=== PATIENT | male | born 1960 | race Caucasian/White ===

== ENCOUNTER 2017-07-31 10:45 | Inpatient (IN) | payer OTHER ==
[2017-07-31 11:09] LABS: CHLORIDE,CL 105 mEq/L (98-106); SODIUM,NA 140 mEq/L (136-145)
[2017-07-31] MEDS ORDERED: Acetaminophen/HYDROcodone 325-5 MG Tab PO PRN (12:14)
[2017-07-31] MEDS ORDERED: Ondansetron 4 MG/2 ML SDV IV PRN (12:14)
[2017-07-31] MEDS ORDERED: Ketorolac 30 MG/ML SDV IVPUSH PRN (12:14)
[2017-07-31] MEDS: Lactated Ringers 1,000 ML IV SCH (16:13)
[2017-07-31] MEDS: NIFEdipine 10 MG Cap PO SCH (16:14)
[2017-07-31] MEDS: Acetaminophen 325 MG Tab PO PRN ×2 (16:22→21:21)
[2017-07-31] MEDS: Enoxaparin 40 MG/0.4 ML Syringe SUBCUT SCH (16:25)
[2017-07-31] MEDS: Ampicillin/Sulbactam Na 3 GM in Sodium Chloride 0.9% 100 ML IV SCH ×4 (16:27→23:56)
[2017-07-31] MEDS: Tamsulosin 0.4 MG Cap.ER PO SCH ×2 (16:59→19:34)
[2017-08-01] MEDS: Lactated Ringers 1,000 ML IV SCH ×3 (00:35→18:20)
[2017-08-01] MEDS: Ampicillin/Sulbactam Na 3 GM in Sodium Chloride 0.9% 100 ML IV SCH ×3 (06:16→18:18)
[2017-08-01] MEDS ORDERED: PYRIDOXINE PO SCH (08:00)
[2017-08-01] MEDS ORDERED: [UNRECOGNIZED DRUG - OTHER] PO SCH (08:00)
[2017-08-01] MEDS ORDERED: TERBINAFINE HCL 250 MG PO SCH (08:00)
[2017-08-01] MEDS ORDERED: CYANOCOBALAMIN PO SCH (08:00)
[2017-08-01] MEDS: Acetaminophen 325 MG Tab PO PRN ×3 (08:09→18:29)
[2017-08-01] MEDS: NIFEdipine 10 MG Cap PO SCH (08:09)
[2017-08-01] MEDS: Enoxaparin 40 MG/0.4 ML Syringe SUBCUT SCH (08:10)
--- NOTE | 2017-08-01 10:51 | PCM.PN ---
- General Info Date of Service: 08/01/17 Admission Dx/Problem (Free Text): Pyelonephritis Nephrolithiasis Functional Status: Reports: Pain Controlled, Tolerating Diet. Denies: Ambulating - Review of Systems General: Reports: Fever, Fatigue. Denies: Weakness HEENT: Reports: No Symptoms Pulmonary: Denies: Shortness of Breath, Cough Cardiovascular: Denies: Chest Pain, Edema Gastrointestinal: Reports: Decreased Appetite. Denies: Abdominal Pain, Nausea, Vomiting Genitourinary: Reports: Flank Pain. Denies: Hematuria Musculoskeletal: Reports: No Symptoms Skin: Reports: No Symptoms Neurological: Reports: No Symptoms Psychiatric: Reports: No Symptoms - Patient Data Vitals - Most Recent: Last Vital Signs Temp 99.6 F 08/01/17 07:50 Pulse 78 08/01/17 07:50 Resp 18 08/01/17 07:50 BP 117/69 08/01/17 08:09 Pulse Ox 94 L 08/01/17 07:50 Weight - Most Recent: 325 lb 9.6 oz I&O - Last 24 Hours: Intake & Output 07/31/17 08/01/17 08/01/17 22:59 06:59 14:59 Intake Total 480 1430 2945 Output Total 150 350 Balance 330 1080 2945 Lab Results Last 24 Hours: Laboratory Results - last 24 hr 07/31/17 07/31/17 08/01/17 Range/Units 10:52 10:52 06:45 WBC 18.9 H 8.4 (5.0-10.0) 10^3/uL RBC 4.91 4.38 L (4.50-6.00) 10^6/uL Hgb 14.2 12.6 L (14.0-18.0) g/dL Hct 43.1 38.8 L (40.0-54.0) % MCV 87.8 88.6 (82.0-94.0) fL MCH 28.9 28.8 (27.0-32.0) pg MCHC 32.9 L 32.5 L (33.0-38.0) g/dL RDW Coeff of Tien 14.4 14.3 (11.0-15.0) % Plt Count 204 159 (150-400) 10^3/uL Neut % (Auto) 81.7 (35-85) % Lymph % (Auto) 7.4 L (10-55) % [place] % (Auto) 10.5 (0-16) % Eos % (Auto) 0.2 (0-5) % Baso % (Auto) 0.2 (0-3) % Neut # (Auto) 6.83 (1.80-7.00) 10^3/uL Lymph # (Auto) 0.62 L (1.00-4.80) 10^3/uL [place] # (Auto) 0.88 H (0.00-0.80) 10^3/uL Eos # (Auto) 0.02 (0.00-0.45) 10^3/uL Baso # (Auto) 0.02 10^3/uL Add Manual Diff Yes Neutrophils % (Manual) 83 (35-85) % Band Neutrophils % 8 H (0-5) % Lymphocytes % (Manual) 6 L (21-55) % Monocytes % (Manual) 3 (2-12) % Absolute Neutrophils 17.20 H (1.80-7.00) 10^3/uL Lymphocytes # (Manual) 1.13 (1.00-4.80) 10^3/uL Monocytes # (Manual) 0.57 (0.00-0.80) 10^3/uL Sodium 140 (136-145) mEq/L Potassium 3.8 (3.5-5.0) mEq/L Chloride 105 (98-106) mEq/L Carbon Dioxide 29 (21-32) mmol/L BUN 15 (7-18) mg/dL Creatinine 1.6 H (0.7-1.3) mg/dL Est Cr Clr Drug Dosing TNP Estimated GFR (MDRD) 45 L (>=60) mL/min Glucose 117 H (75-99) mg/dL Calcium 8.5 (8.4-10.1) mg/dL C-Reactive Protein 12.4 H (0.2-0.8) mg/dL 08/01/17 Range/Units 06:45 WBC (5.0-10.0) 10^3/uL RBC (4.50-6.00) 10^6/uL Hgb (14.0-18.0) g/dL Hct (40.0-54.0) % MCV (82.0-94.0) fL MCH (27.0-32.0) pg MCHC (33.0-38.0) g/dL RDW Coeff of Tien (11.0-15.0) % Plt Count (150-400) 10^3/uL Neut % (Auto) (35-85) % Lymph % (Auto) (10-55) % [place] % (Auto) (0-16) % Eos % (Auto) (0-5) % Baso % (Auto) (0-3) % Neut # (Auto) (1.80-7.00) 10^3/uL Lymph # (Auto) (1.00-4.80) 10^3/uL [place] # (Auto) (0.00-0.80) 10^3/uL Eos # (Auto) (0.00-0.45) 10^3/uL Baso # (Auto) 10^3/uL Add Manual Diff Neutrophils % (Manual) (35-85) % Band Neutrophils % (0-5) % Lymphocytes % (Manual) (21-55) % Monocytes % (Manual) (2-12) % Absolute Neutrophils (1.80-7.00) 10^3/uL Lymphocytes # (Manual) (1.00-4.80) 10^3/uL Monocytes # (Manual) (0.00-0.80) 10^3/uL Sodium 141 (136-145) mEq/L Potassium 3.9 (3.5-5.0) mEq/L Chloride 106 (98-106) mEq/L Carbon Dioxide 28 (21-32) mmol/L BUN 14 (7-18) mg/dL Creatinine 1.5 H (0.7-1.3) mg/dL Est Cr Clr Drug Dosing 58.92 Estimated GFR (MDRD) 48 L (>=60) mL/min Glucose 95 (75-99) mg/dL Calcium 8.3 L (8.4-10.1) mg/dL C-Reactive Protein 14.0 H (0.2-0.8) mg/dL Med Orders - Current: Current Medications Acetaminophen (Tylenol) 650 mg PO Q4H PRN PRN Reason: Pain (Mild 1-3)/fever Last Admin: 08/01/17 08:09 Dose: 650 mg Hydrocodone Bitart/Acetaminophen ([place] 325-5 Mg) 2 tab PO Q4H PRN PRN Reason: Pain (moderate 4-6) Enoxaparin Sodium (Lovenox) 40 mg SUBCUT DAILY [facility] Last Admin: 08/01/17 08:10 Dose: 40 mg Ampicillin Sodium/Sulbactam (Sodium 3 gm/ Sodium Chloride) 100 mls @ 200 mls/ hr IV Q6H [facility] Last Admin: 08/01/17 06:16 Dose: 200 mls/hr Lactated Ringer's (Ringers, Lactated) 1,000 mls @ 125 mls/hr IV ASDIRECTED [facility] Last Admin: 08/01/17 09:31 Dose: 125 mls/hr Ketorolac Tromethamine (Toradol) 30 mg IVPUSH Q6H PRN PRN Reason: Pain Stop: 08/05/17 12:17 Nifedipine (Procardia) 10 mg PO DAILY [facility] Last Admin: 08/01/17 08:09 Dose: 10 mg Non-Formulary Medication (Cyanocobalamin/Fa/Pyridoxine [Folbee]) 1 tab PO DAILY [facility] Ondansetron HCl (Zofran) 4 mg IV Q4H PRN PRN Reason: Nausea/Vomiting Tamsulosin HCl (Flomax) 0.4 mg PO BEDTIME [facility] Last Admin: 07/31/17 19:34 Dose: 0.4 mg Discontinued Medications Non-Formulary Medication (Terbinafine Hcl [Terbinafine Hcl]) 250 mg PO DAILY [facility] - Exam General: Alert, Oriented HEENT: Mucous Membr. Moist/[place] Neck: Supple Lungs: Clear to Auscultation, Normal Respiratory Effort Cardiovascular: Regular Rate, Regular Rhythm GI/Abdominal Exam: Normal Bowel Sounds, Soft, Non-Tender, Other (No CVA tenderness) Back Exam: No: CVA Tenderness (L) Extremities: Normal Inspection, No Pedal Edema Skin: Warm, Dry Neurological: No New Focal Deficit - Problem List & Annotations (1) Pyelonephritis SNOMED Code(s): 19665340 Code(s): N12 - TUBULO-INTERSTITIAL NEPHRITIS, NOT SPCF ACUTE OR CHRONIC Status: Acute Priority: High Current Visit: Yes (2) Nephrolithiasis SNOMED Code(s): 97725007 Code(s): N20.0 - CALCULUS OF KIDNEY Status: Acute Priority: High Current Visit: Yes - Problem List Review Problem List Initiated/Reviewed/Updated: Yes - Assessment Assessment:: Pyelonephritis Nephrolithiasis - Plan Plan:: Patient states is feeling better this am, finally able to eat some. Less nausea. Still continues to run low grade temps, 99.6 this am. States abdominal discomfort is improved. Still has mild flank pain but nontender to palpation. Did have notable stone on scan. Dr. Prather was consulted by Ever Cordon and felt it may not pass without intervention. WBC 8.4 today, much improved. CRP increased to 14. Creatinine stable Will continue to push fluids, IV fluids, pain meds as needed. Strain urine. IV Unasyn for UTI. Encourage ambulation. Possible discharge in am.
[2017-08-01] MEDS ORDERED: Sodium Chloride 0.9% 0 ML ONE (18:23)
[2017-08-01] MEDS: Tamsulosin 0.4 MG Cap.ER PO SCH (19:22)
[2017-08-01] MEDS: Ibuprofen 200 MG Tab PO PRN (22:30)
[2017-08-02] MEDS: Ampicillin/Sulbactam Na 3 GM in Sodium Chloride 0.9% 100 ML IV SCH ×5 (00:16→23:37)
[2017-08-02] MEDS: Lactated Ringers 1,000 ML IV SCH ×3 (03:41→21:29)
[2017-08-02] MEDS: NIFEdipine 10 MG Cap PO SCH (07:53)
[2017-08-02] MEDS: Enoxaparin 40 MG/0.4 ML Syringe SUBCUT SCH (07:54)
[2017-08-02] MEDS: Acetaminophen 325 MG Tab PO PRN ×3 (10:10→23:39)
--- NOTE | 2017-08-02 10:49 | PCM.PN ---
- General Info Date of Service: 08/02/17 Admission Dx/Problem (Free Text): Pyelonephritis Nephrolithiasis Functional Status: Reports: Pain Controlled, Tolerating Diet, Ambulating - Review of Systems General: Reports: Fever, Weakness, Fatigue, Malaise, Chills HEENT: Reports: No Symptoms Pulmonary: Reports: No Symptoms Cardiovascular: Reports: No Symptoms Gastrointestinal: Denies: Nausea, Vomiting Genitourinary: Reports: Flank Pain Musculoskeletal: Reports: No Symptoms Skin: Reports: No Symptoms Neurological: Reports: No Symptoms - Patient Data Vitals - Most Recent: Last Vital Signs Temp 97.9 F 08/02/17 07:52 Pulse 61 08/02/17 07:52 Resp 16 08/02/17 07:52 BP 125/72 08/02/17 07:53 Pulse Ox 96 08/02/17 07:52 Weight - Most Recent: 325 lb 9.6 oz I&O - Last 24 Hours: Intake & Output 08/01/17 08/02/17 08/02/17 22:59 06:59 14:59 Intake Total 2220 1475 Output Total 736 607 3484 Balance 1470 1075 -1100 Lab Results Last 24 Hours: Laboratory Results - last 24 hr 08/02/17 08/02/17 Range/Units 06:50 06:50 WBC 6.9 (5.0-10.0) 10^3/uL RBC 4.30 L (4.50-6.00) 10^6/uL Hgb 12.3 L (14.0-18.0) g/dL Hct 38.1 L (40.0-54.0) % MCV 88.6 (82.0-94.0) fL MCH 28.6 (27.0-32.0) pg MCHC 32.3 L (33.0-38.0) g/dL RDW Coeff of Tien 14.3 (11.0-15.0) % Plt Count 168 (150-400) 10^3/uL Neut % (Auto) 68.4 (35-85) % Lymph % (Auto) 14.2 (10-55) % [place] % (Auto) 15.8 (0-16) % Eos % (Auto) 1.3 (0-5) % Baso % (Auto) 0.3 (0-3) % Neut # (Auto) 4.72 (1.80-7.00) 10^3/uL Lymph # (Auto) 0.98 L (1.00-4.80) 10^3/uL [place] # (Auto) 1.09 H (0.00-0.80) 10^3/uL Eos # (Auto) 0.09 (0.00-0.45) 10^3/uL Baso # (Auto) 0.02 10^3/uL Sodium 144 (136-145) mEq/L Potassium 4.1 (3.5-5.0) mEq/L Chloride 108 H (98-106) mEq/L Carbon Dioxide 32 (21-32) mmol/L BUN 12 (7-18) mg/dL Creatinine 1.5 H (0.7-1.3) mg/dL Est Cr Clr Drug Dosing 58.92 mL/min Estimated GFR (MDRD) 48 L (>=60) mL/min Glucose 102 H (75-99) mg/dL Calcium 8.3 L (8.4-10.1) mg/dL C-Reactive Protein 10.5 H (0.2-0.8) mg/dL Med Orders - Current: Current Medications Acetaminophen (Tylenol) 650 mg PO Q4H PRN PRN Reason: Pain (Mild 1-3)/fever Last Admin: 08/02/17 10:10 Dose: 650 mg Hydrocodone Bitart/Acetaminophen ([place] 325-5 Mg) 2 tab PO Q4H PRN PRN Reason: Pain (moderate 4-6) Enoxaparin Sodium (Lovenox) 40 mg SUBCUT DAILY [facility] Last Admin: 08/02/17 07:54 Dose: 40 mg Ampicillin Sodium/Sulbactam (Sodium 3 gm/ Sodium Chloride) 100 mls @ 200 mls/ hr IV Q6H [facility] Last Admin: 08/02/17 06:19 Dose: 200 mls/hr Lactated Ringer's (Ringers, Lactated) 1,000 mls @ 125 mls/hr IV ASDIRECTED [facility] Last Admin: 08/02/17 03:41 Dose: 125 mls/hr Ibuprofen (Motrin) 600 mg PO Q6H PRN PRN Reason: Fever Last Admin: 08/01/17 22:30 Dose: 600 mg Nifedipine (Procardia) 10 mg PO DAILY [facility] Last Admin: 08/02/17 07:53 Dose: 10 mg Non-Formulary Medication (Cyanocobalamin/Fa/Pyridoxine [Folbee]) 1 tab PO DAILY [facility] Ondansetron HCl (Zofran) 4 mg IV Q4H PRN PRN Reason: Nausea/Vomiting Last Admin: 08/01/17 23:09 Dose: 4 mg Tamsulosin HCl (Flomax) 0.4 mg PO BEDTIME [facility] Last Admin: 08/01/17 19:22 Dose: 0.4 mg Discontinued Medications Sodium Chloride (Normal Saline) Confirm Administered Dose 100 mls @ as directed .ROUTE .STK-MED ONE Stop: 08/01/17 18:24 Last Admin: 08/01/17 18:19 Dose: Not Given Ketorolac Tromethamine (Toradol) 30 mg IVPUSH Q6H PRN PRN Reason: Pain Stop: 08/05/17 12:17 Non-Formulary Medication (Terbinafine Hcl [Terbinafine Hcl]) 250 mg PO DAILY [facility] - Exam General: Alert, Oriented HEENT: Mucous Membr. Moist/[place] Neck: Supple Lungs: Clear to Auscultation, Normal Respiratory Effort Cardiovascular: Regular Rate, Regular Rhythm GI/Abdominal Exam: Normal Bowel Sounds, Soft, Non-Tender Extremities: Normal Inspection, No Pedal Edema - Problem List & Annotations (1) Pyelonephritis SNOMED Code(s): 51809147 Code(s): N12 - TUBULO-INTERSTITIAL NEPHRITIS, NOT SPCF ACUTE OR CHRONIC Status: Acute Priority: High Current Visit: Yes (2) Nephrolithiasis SNOMED Code(s): 34145215 Code(s): N20.0 - CALCULUS OF KIDNEY Status: Acute Priority: High Current Visit: Yes - Problem List Review Problem List Initiated/Reviewed/Updated: Yes - My Orders Last 24 Hours: My Active Orders 08/01/17 22:19 Ibuprofen [Motrin] 600 mg PO Q6H PRN - Assessment Assessment:: Pyelonephritis Nephrolithiasis - Plan Plan:: Patient states is feeling better this am, finally able to eat some. Less nausea. Still continues to run low grade temps, 99.6 this am. States abdominal discomfort is improved. Still has mild flank pain but nontender to palpation. Did have notable stone on scan. Dr. Prather was consulted by Ever Cordon and felt it may not pass without intervention. WBC 8.4 today, much improved. CRP increased to 14. Creatinine stable Will continue to push fluids, IV fluids, pain meds as needed. Strain urine. IV Unasyn for UTI. Encourage ambulation. Possible discharge in am. 08-02-2017 Patient not feeling well this am. Chills and shaking. Did spike temp up to 102.2 at midnight. Patient has been taking tylenol and ibuprofen to control his temp. Pain is controlled with tylenol. States has an ache deep in the left flank. Labs improving, WBC at 6.9. CRP 10.5. Will continue with IV fluids, pain meds. Unasyn for infection. Will keep another 24 hours due to fevers.
[2017-08-02] MEDS ORDERED: Ampicillin/Sulbactam Na 3 GM Vial ONE (12:04)
[2017-08-02] MEDS: Ampicillin/Sulbactam Na 3 GM Vial ONE ×2 (17:03→17:07)
[2017-08-02] MEDS: Tamsulosin 0.4 MG Cap.ER PO SCH (19:25)
[2017-08-02] MEDS: Ibuprofen 200 MG Tab PO PRN (21:22)
[2017-08-03] MEDS: Ampicillin/Sulbactam Na 3 GM in Sodium Chloride 0.9% 100 ML IV SCH (05:45)
[2017-08-03] MEDS: Lactated Ringers 1,000 ML IV SCH (05:51)
[2017-08-03] MEDS: Ibuprofen 200 MG Tab PO PRN (06:07)
[2017-08-03] MEDS: NIFEdipine 10 MG Cap PO SCH (07:15)
[2017-08-03] MEDS: Enoxaparin 40 MG/0.4 ML Syringe SUBCUT SCH (07:16)
--- NOTE | 2017-08-03 09:32 | DISCH ---
HISTORY: Nate Quick came in with nephrolithiasis of distal ureter, I believe, right side, with sepsis from that. He was admitted to the hospital and started on IV antibiotics. At the time of discharge, abdomen was soft, minimal pain. LABORATORY DATA: CBC was 18.9, prior to discharge it was 7. C-reactive protein was still elevated at 10.7, it was 12.4. Blood sugars were good. Renal function; creatinine 1.6, went down to 1.5. DISPOSITION: The patient now discharged home. DISCHARGE INSTRUCTIONS: He will have a consult with a urologist to see whether they can move that distal 9 mm stone. DISCHARGE MEDICATIONS: Home medications plus Cipro 500 b.i.d. for 7 days. DISCHARGE DIAGNOSIS: NEPHROLITHIASIS WITH EARLY SEPSIS DUE TO DISTAL URETER STONE. MERCEDES/ASHLEY /[id number]
== END 2017-08-03 09:18 | disposition home or self-care (01) | DRG 872 ==
LOC: CC.MS 10:45 → CC.FCMC 10:45 → CC.MS 11:55 → UNDOADMIN 11:55 → CC.MS 12:12
PROVIDERS: ADMIT Physician Assistant Medical; ATTEND General Practice
DX: A41.9 Sepsis, unspecified organism (principal); N12 Tubulo-interstitial nephritis, not specified as acute or chronic; N20.0 Calculus of kidney; Z85.05 Personal history of malignant neoplasm of liver
CPT/HCPCS: 36415; 74176; 80048; 85025; 86140; A9270-GY; J0295; J1650; J2405; J7050; J7120

== ENCOUNTER 2025-06-19 19:13 | Emergency (ER) | payer OTHER | END 2025-06-19 20:50 | disposition home or self-care (01) | LOC: CC.ED 19:13 | DX: S05.12XA Contusion of eyeball and orbital tissues, left eye, initial encounter (principal); I50.9 Heart failure, unspecified; K21.9 Gastro-esophageal reflux disease without esophagitis; Z90.49 Acquired absence of other specified parts of digestive tract; Z88.8 Allergy status to other drugs, medicaments and biological substances; Z79.899 Other long term (current) drug therapy; W22.8XXA Striking against or struck by other objects, initial encounter; Y93.89 Activity, other specified | CPT/HCPCS: 70450; 70486; 99283 ==